=== PATIENT | male | born 1985 | race Caucasian/White ===

== ENCOUNTER 2025-04-14 06:20 | Observation (INO) | payer BC ==
[2025-04-13 09:21] LABS: BASOPHILS % 0.7 % (0.0-1.0); EOSINOPHILS % 5.4 % (0.0-6.0); LYMPHOCYTES % 30.1 % (18.0-39.1); MONOCYTES % 6.9 % (4.4-11.3); NEUTROPHILS % 56.7 % (38.7-80.0); RED CELL DISTRIBUTION WIDTH 12.5 % (11.7-14.4)
[2025-04-13 09:36] LABS: INR 0.81
[2025-04-13 09:45] LABS: EST GLOMERULAR FILTRATION RATE 112.0 ML/MIN (>=60)
[~2025-04-14] VITALS: Ht 180.3 cm; Wt 84.1 kg
[2025-04-14] MEDS ORDERED: ACETAMINOPHEN 1000 MG/100 ML 100 ML IV ONE (07:17)
[2025-04-14] MEDS ORDERED: SEVOFLURANE INHAL SOLN 250 ML PEN BTL ONE (07:17)
[2025-04-14] MEDS ORDERED: FENTANYL CITRATE/PF 100MCG/2 ML INJ ONE (07:17)
[2025-04-14] MEDS ORDERED: LIDOCAINE HCL 2% LOCAL INJ 5 ML SDV VIAL INJ ONE (07:17)
[2025-04-14] MEDS ORDERED: PROPOFOL IV EMULSION 10 MG/ML 20 ML VIAL ONE (07:17)
[2025-04-14] MEDS ORDERED: ROCURONIUM BROMIDE 1 ML IV ONE ×2 (07:17→08:23)
[2025-04-14] MEDS ORDERED: MIDAZOLAM HCL 2 MG/2 ML VIAL ONE (07:17)
[2025-04-14] MEDS: LACTATED RINGER'S 1,000 ML ONE (07:30)
[2025-04-14] MEDS: CEFAZOLIN SODIUM 2 GM ONE (07:35)
[2025-04-14] MEDS ORDERED: ONDANSETRON HCL INJ 2MG/ML 2ML 2 MG/ML VIAL ONE (08:10)
[2025-04-14] MEDS ORDERED: DEXAMETHASONE SOD PHOS INJ 4 MG/ML SDV ONE (08:10)
[2025-04-14] MEDS ORDERED: KETAMINE HCL INJ 50 MG/ML 10 ML VIAL ONE (08:12)
[2025-04-14] MEDS ORDERED: PHENYLEPHRINE HCL 1% 10 MG/ML VIAL ONE (08:48)
[2025-04-14] MEDS ORDERED: SUGAMMADEX SODIUM 200 MG/2 ML VIAL IV ONE (09:25)
[2025-04-14] MEDS ORDERED: HYDROCODON-ACE1 EA12 PO (09:41)
[2025-04-14] MEDS ORDERED: CEPACOL SORE THROAT LOZENGES PO PRN (09:45)
[2025-04-14] MEDS ORDERED: MAGNESIUM/ALUMINUM/SIMETHICONE 30 ML UDC PO PRN (09:45)
[2025-04-14] MEDS ORDERED: CARISOPRODOL 350 MG TAB PO PRN (09:45)
[2025-04-14] MEDS ORDERED: ZOLPIDEM TARTRATE 5 MG TAB PO PRN (09:45)
[2025-04-14] MEDS ORDERED: ACETAMINOPHEN 325 MG TAB PO PRN (09:45)
[2025-04-14] MEDS ORDERED: HYDROMORPHONE 2MG/ML IV PRN (09:45)
[2025-04-14] MEDS ORDERED: ONDANSETRON HCL INJ 2MG/ML 2ML 2 MG/ML VIAL IV PRN (09:45)
[2025-04-14] MEDS: FENTANYL CITRATE/PF 100MCG/2 ML INJ ONE (10:11)
[2025-04-14 11:00] VITALS: BP 116/77; PULSE 63; RESP 14; TEMP 97.2; O2SAT 98
[2025-04-14] MEDS: PROMETHAZINE HCL (IM) 25 MG/ML VIAL IM PRN (11:58)
[2025-04-14] MEDS: LACTATED RINGER'S 1,000 ML IV SCH (12:04)
[2025-04-14] MEDS: Morphine 10mg syringe 10 MG/ML INJ IV PRN (12:10)
[2025-04-14 12:18] VITALS: BP 117/76; PULSE 55; RESP 20; TEMP 97.3; O2SAT 98
[2025-04-14 16:08] VITALS: BP 136/79; PULSE 64; RESP 18; TEMP 98.1; O2SAT 100
[2025-04-14 19:24] VITALS: BP 116/65; PULSE 76; RESP 18; TEMP 97.6; O2SAT 100
[2025-04-14 23:15] VITALS: BP 119/74; PULSE 69; RESP 18; TEMP 97.7; O2SAT 100
[2025-04-15 00:34] VITALS: BP 119/74; PULSE 69; RESP 18; TEMP 97.7; O2SAT 100
[2025-04-15 03:24] VITALS: BP 120/76; PULSE 62; RESP 17; TEMP 97.5; O2SAT 99
[2025-04-15] MEDS: OXYCODONE/ACETAMINOPHEN 5-325 1 EACH TABLET PO PRN (06:50)
[2025-04-15 08:44] VITALS: BP 122/81; PULSE 62; RESP 19; TEMP 97.7; O2SAT 100
[2025-04-15 11:01] VITALS: BP 122/81; PULSE 62; RESP 19; TEMP 97.7; O2SAT 100
== END 2025-04-15 11:32 | disposition home or self-care (01) ==
LOC: OR 06:20 → PACU V 09:40 → MED/SURG 10:49
PROVIDERS: ADMIT Neurological Surgery; ATTEND Neurological Surgery
DX: M50.122 Cervical disc disorder at C5-C6 level with radiculopathy (principal); M50.123 Cervical disc disorder at C6-C7 level with radiculopathy; Z01.810 Encounter for preprocedural cardiovascular examination; Z01.812 Encounter for preprocedural laboratory examination; Z01.818 Encounter for other preprocedural examination
CPT/HCPCS: 20931; 22551; 22552; 36415; 71046; 72040; 76000; 80048; 85025; 85610; 85730; 86850; 86900; 88304; 88311; 93005; C1768; G0378 ×2; J0131; J0690 ×2; J1100; J2003; J2250; J2270; J2371; J2405; J2550; J2704; J3010; J7121 ×2